=== PATIENT | female | born 1965 | race Caucasian/White ===

== ENCOUNTER 2022-03-03 13:31 | Outpatient (CLI) | payer BC, SELFPAY ==
--- NOTE | 2022-03-03 13:45 | MR_ITS ---
[address] [address] Phone:?[phone] Fax:?[phone] Referring Physician Information: Paras Sidhu PA-C [id number] [facility] [id number] Phone:?[phone] Fax:?[phone] Patient:Marlena Vasquez D.O.B:?1965 Sex:?Female Phone:?[phone] [facility] MRN:?[id number] Exam Date:?03/03/2022 ? EXAM: MRI of the LEFT HIP, without contrast CLINICAL HISTORY: Left hip pain. No history of previous surgery. COMPARISONS: CT scan 06/26/2016. TECHNICAL: MR sequences of the left hip: Axials: PD FS Axial oblique: PD Coronals: PD, T2 Coronal pelvis: T1 and STIR Sagittals: PD and T2 CONTRAST: None SEDATION: None FINDINGS: Pelvis osseous structures: Sacrum: No fracture or destructive osseous lesion is seen of the imaged portions of the sacrum. Sacroiliac joints: No convincing evidence of sacroiliitis of the imaged portions of the sacroiliac joints. Pubic rami: Unremarkable. Symphysis pubis: There is no evidence of acute osteitis pubis. Labrum: Fraying/ill-defined tearing of the anterosuperior and posterosuperior portions of the left hip labrum is suspected although it must be noted that evaluation is compromised by nonarthrogram technique, suboptimal [id number], and motion degradation. Hip joint: Physiologic amount of joint fluid. No chondral loss is seen although it must be noted that the cartilage is not optimally evaluated because of nonarthrogram technique, suboptimal [id number], and motion degradation. No subchondral bone marrow edema or subchondral cystic change is seen. Proximal femur: No fracture, osseous stress injury, avascular necrosis, or suspicious bone marrow signal abnormality is seen. The left femoral alpha angle measures approximately 95 degrees at the 1 o'clock position anterosuperiorly measured on coronal series 4 image 12. Acetabulum: No subchondral cysts, periacetabular ossicles or marrow edema. Coverage: Left lateral center edge (CE) angle measures approximately 35? (normal 25?-39?) correcting for coronal pelvic tilt, midline coronal series 4 image 10. Ligamentum teres: Unremarkable. Myotendinous structures: Gluteus abductors: There is ill-defined high-grade partial tear of the left gluteus minimus tendon insertion best seen on axial series 7 images 8 through 16 and coronal series 2 images 16 through 18. Rectus abdominis-adductor longus aponeurosis, adductors, and rectus abdominis: Unremarkable. Hamstrings: Unremarkable. Flexors: The iliopsoas and rectus femoris tendons are intact. Quadratus femoris muscle: Unremarkable. Gluteal aponeurotic fascia and IT band: Unremarkable. Pelvic soft tissues: There is an approximately 2.7 cm in craniocaudad dimension by 2.3 cm in transverse dimension right-sided ovarian lesion best seen on coronal series 3 images 13 through 16 that may represent a hemorrhagic cyst or ovarian dermoid. IMPRESSION: 1. Fraying/ill-defined tearing of the anterosuperior and posterosuperior portions of the left hip labrum is suspected although it must be noted that evaluation is compromised by nonarthrogram technique, suboptimal [id number], and motion degradation. No left hip chondral loss is identified although it must be noted that evaluation is compromised by nonarthrogram technique, suboptimal [id number]-[id number], and motion degradation. No degenerative subdural cystic change/degenerative subchondral bone marrow edema. 2. Left femoral cam morphology with a femoral alpha angle of approximately 95 degrees at the 1 o'clock position anterosuperiorly. 3. Ill-defined high-grade partial tear of the left gluteus minimus tendon insertion. 4. Approximately 2.7 x 2.3 cm right-sided right ovarian lesion may represent a hemorrhagic ovarian cyst or ovarian dermoid. Dedicated pelvic ultrasound is recommended for further evaluation. 5. No fracture or osseous stress injury of the left hip. RCB Electronically signed on 03/06/2022 7:39:00 AM by Alcides Walters M.D.
== END 2022-03-03 13:32 | disposition home or self-care (01) ==
LOC: MRI 13:32
PROVIDERS: PCP Physician Assistant Medical; Visit Provider Physician Assistant Medical
DX: M25.552 Pain in left hip (principal); S73.192A Other sprain of left hip, initial encounter; S46.912A Strain of unspecified muscle, fascia and tendon at shoulder and upper arm level, left arm, initial encounter; N83.201 Unspecified ovarian cyst, right side
CPT/HCPCS: 73721

== ENCOUNTER 2022-03-09 08:52 | Outpatient (CLI) | payer BC, SELFPAY ==
[2022-03-09 13:56] LABS: Alanine Aminotransferase* 42 U/L (4-35); Aspartate Amino Transferase* 47 U/L (12-35); Cholesterol* 190 mg/dL (90-199); HDL Cholesterol* 38 mg/dL (>=50); LDL Cholesterol Calculated 114 mg/dL (<100); Triglycerides* 191 mg/dL (40-149)
== END 2022-03-09 08:53 | disposition home or self-care (01) ==
PROVIDERS: PCP Physician Assistant Medical; Visit Provider Physician Assistant Medical
DX: E78.5 Hyperlipidemia, unspecified (principal); E66.01 Morbid (severe) obesity due to excess calories; M25.552 Pain in left hip
CPT/HCPCS: 80061; 84450; 84460

== ENCOUNTER 2022-03-22 14:16 | Outpatient (RCR) | payer BC, SELFPAY | END 2022-05-31 11:16 | disposition home or self-care (01) | PROVIDERS: PCP Physician Assistant Medical; Visit Provider Family Medicine | DX: M25.552 Pain in left hip (principal); M25.562 Pain in left knee; Z51.89 Encounter for other specified aftercare | CPT/HCPCS: 97035; 97110; 97140 ==

== ENCOUNTER 2022-06-13 15:15 | Outpatient (CLI) | payer BC, SELFPAY ==
[2022-06-13 21:35] LABS: Chloride* 105 mmol/L (96-114); Potassium* 4.6 mmol/L (3.6-5.1); Sodium* 138 mmol/L (135-149)
[2022-06-13 21:38] LABS: Carbon Dioxide* 26 mmol/L (20-32); Creatinine* 0.8 mg/dL (0.5-1.5); Estimated Glomerular Filt Rate 87 ml/min
[2022-06-13 21:39] LABS: Blood Urea Nitrogen* 17 mg/dL (7-30); Calcium* 9.1 mg/dL (8.4-10.6); Glucose* 140 mg/dL (60-115)
== END 2022-06-13 15:16 | disposition home or self-care (01) ==
LOC: FRMREF 15:16
PROVIDERS: PCP Physician Assistant Medical; Visit Provider Physician Assistant Medical
DX: Z01.818 Encounter for other preprocedural examination (principal)
CPT/HCPCS: 80048

== ENCOUNTER 2022-06-23 10:46 | Outpatient (CLI) | payer BC, SELFPAY | END 2022-06-23 10:47 | disposition home or self-care (01) | LOC: RAD 10:47 | PROVIDERS: PCP Physician Assistant Medical; Visit Provider Physician Assistant Medical | DX: Z01.810 Encounter for preprocedural cardiovascular examination (principal); I34.0 Nonrheumatic mitral (valve) insufficiency | CPT/HCPCS: 93306 ==

== ENCOUNTER 2023-03-09 07:42 | Outpatient (CLI) | payer BC, SELFPAY | END 2023-03-09 07:43 | disposition home or self-care (01) | LOC: NFLDREF 20:34 | PROVIDERS: PCP Physician Assistant Medical; Referring Provider Physician Assistant Medical; Visit Provider Physician Assistant Medical | DX: E78.5 Hyperlipidemia, unspecified (principal); I10 Essential (primary) hypertension | CPT/HCPCS: 80053; 80061; 84443 ==

== ENCOUNTER 2023-03-13 15:19 | Outpatient (CLI) | payer BC, SELFPAY | END 2023-03-13 15:20 | disposition home or self-care (01) | PROVIDERS: PCP Physician Assistant Medical; Visit Provider Physician Assistant Medical | DX: Z00.00 Encounter for general adult medical examination without abnormal findings (principal); R20.0 Anesthesia of skin; R25.2 Cramp and spasm; E66.01 Morbid (severe) obesity due to excess calories; I10 Essential (primary) hypertension; Z13.21 Encounter for screening for nutritional disorder; E78.2 Mixed hyperlipidemia; D50.0 Iron deficiency anemia secondary to blood loss (chronic); G43.109 Migraine with aura, not intractable, without status migrainosus; D68.51 Activated protein C resistance | CPT/HCPCS: 82306; 82607 ==

== ENCOUNTER 2023-06-14 08:33 | Outpatient (CLI) | payer BC, SELFPAY | END 2023-06-14 08:34 | disposition home or self-care (01) | LOC: NFLDREF 06-16 20:18 | PROVIDERS: PCP Physician Assistant Medical; Referring Provider Physician Assistant Medical; Visit Provider Physician Assistant Medical | DX: R79.0 Abnormal level of blood mineral (principal); D50.0 Iron deficiency anemia secondary to blood loss (chronic); E55.9 Vitamin D deficiency, unspecified | CPT/HCPCS: 82306; 82728 ==

== ENCOUNTER 2023-09-28 08:52 | Outpatient (CLI) | payer BC, SELFPAY ==
--- NOTE | 2023-09-28 10:53 | W.ANESCHARGE ---
Anesthesia Charges Start Date/Time Anesthesia Start Date: 09/28/23 Anesthesia Start Time: 10:26 Stop Date/Time Anesthesia Stop Date: 09/28/23 Anesthesia Stop Time: 10:48
== END 2023-09-28 08:53 | disposition home or self-care (01) ==
LOC: OP CLINIC 08:53
PROVIDERS: PCP Physician Assistant Medical; Visit Provider Internal Medicine
DX: Z12.11 Encounter for screening for malignant neoplasm of colon (principal); Z86.010 Personal history of colon polyps; Z80.0 Family history of malignant neoplasm of digestive organs
CPT/HCPCS: 00812; 45378; J2704

== ENCOUNTER 2023-12-25 13:08 | Outpatient (CLI) | payer BC, SELFPAY | END 2023-12-25 13:09 | disposition home or self-care (01) | PROVIDERS: PCP Physician Assistant Medical; Visit Provider Physician Assistant Medical | DX: I10 Essential (primary) hypertension (principal); R79.0 Abnormal level of blood mineral; M25.59 Pain in other specified joint; Z13.29 Encounter for screening for other suspected endocrine disorder | CPT/HCPCS: 80053; 82306; 82728; 84443; 86200; 86431 ==

== ENCOUNTER 2024-05-12 10:45 | Outpatient (CLI) | payer BC, SELFPAY | END 2024-05-12 10:46 | disposition home or self-care (01) | LOC: NFLDREF 05-15 07:13 | PROVIDERS: PCP Physician Assistant Medical; Referring Provider Physician Assistant Medical; Visit Provider Physician Assistant Medical | DX: D50.0 Iron deficiency anemia secondary to blood loss (chronic) (principal); E55.9 Vitamin D deficiency, unspecified; G43.909 Migraine, unspecified, not intractable, without status migrainosus; R79.0 Abnormal level of blood mineral; I10 Essential (primary) hypertension; E78.2 Mixed hyperlipidemia; M05.741 Rheumatoid arthritis with rheumatoid factor of right hand without organ or systems involvement; M05.742 Rheumatoid arthritis with rheumatoid factor of left hand without organ or systems involvement; G43.109 Migraine with aura, not intractable, without status migrainosus; E66.01 Morbid (severe) obesity due to excess calories; B00.1 Herpesviral vesicular dermatitis; D68.51 Activated protein C resistance | CPT/HCPCS: 80061; 82306; 82728; 84450; 84460 ==

== ENCOUNTER 2024-05-29 07:05 | Outpatient (CLI) | payer BC, SELFPAY ==
--- NOTE | 2024-05-29 07:15 | CRLHL7_ITS ---
For Patients: As a result of the Century Cures Act, medical imaging exams and procedure reports are released immediately into your electronic medical record. You may view this report before your referring provider. If you have questions, please contact your health care provider. Indication: Elevated LFTs Technique: Multiple transverse and longitudinal sonographic grayscale images of the right upper quadrant of the abdomen were obtained, supplemented with color, power, and spectral Doppler imaging. Comparison: 12/27/2018. Findings: Pancreas: Visualized portions normal. Liver length: 15.7 cm. Liver appearance: Moderate hepatic steatosis. No biliary ductal dilation. Portal vein: Patent, hepatopetal flow. CBD: 0.6 cm. Gallbladder: Status post cholecystectomy. Right kidney length: 11.7 cm. Right kidney appearance: Normal. Impression: 1. Moderate hepatic steatosis. 2. Postsurgical changes from cholecystectomy. Dictated by Grabiel Ghotra MD @ 05/31/2024 10:35:15 AM (Electronically Signed)
== END 2024-05-29 07:06 | disposition home or self-care (01) ==
LOC: US 07:06
PROVIDERS: PCP Physician Assistant Medical; Visit Provider Physician Assistant Medical
DX: R79.89 Other specified abnormal findings of blood chemistry (principal); K76.0 Fatty (change of) liver, not elsewhere classified
CPT/HCPCS: 76705

== ENCOUNTER 2024-07-07 13:49 | Outpatient (CLI) | payer BC, SELFPAY | END 2024-07-07 13:50 | disposition home or self-care (01) | LOC: FRMREF 13:50 | PROVIDERS: PCP Physician Assistant Medical; Visit Provider Physician Assistant Medical | DX: R19.7 Diarrhea, unspecified (principal) | CPT/HCPCS: 84450; 84460 ==

== ENCOUNTER 2025-05-11 07:32 | Outpatient (CLI) | payer BC, SELFPAY | END 2025-05-11 07:33 | disposition home or self-care (01) | LOC: NFLDREF 05-15 02:18 | PROVIDERS: PCP Physician Assistant Medical; Referring Provider Physician Assistant Medical; Visit Provider Physician Assistant Medical | DX: Z00.00 Encounter for general adult medical examination without abnormal findings (principal); E55.9 Vitamin D deficiency, unspecified | CPT/HCPCS: 80053; 80061; 82306; 84443 ==

== ENCOUNTER 2025-06-30 16:27 | Outpatient (CLI) | payer BC, SELFPAY ==
--- NOTE | 2025-06-30 16:45 | CRLHL7_ITS ---
For Patients: As a result of the Century Cures Act, medical imaging exams and procedure reports are released immediately into your electronic medical record. You may view this report before your referring provider. If you have questions, please contact your health care provider. INDICATION: Pain and swelling TECHNIQUE: Ultrasound venous duplex lower right extremity. Compression venous exam was performed using krause-scale, color Doppler, and spectral Doppler imaging. COMPARISON: None FINDINGS: Sonographic imaging demonstrates the right common femoral, deep femoral, superficial femoral, popliteal, posterior tibial and greater saphenous and the contralateral left common femoral veins to be fully compressible with normal color Doppler blood flow. IMPRESSION: No convincing radiographic evidence of deep vein thrombosis within the visualized right lower extremity. Dictated by Elliott Adam MD @ 06/30/2025 5:53:44 PM (Electronically Signed)
== END 2025-06-30 16:28 | disposition home or self-care (01) ==
LOC: US 16:27
PROVIDERS: PCP Physician Assistant Medical; Visit Provider Physician Assistant Medical
DX: M79.604 Pain in right leg (principal); R22.41 Localized swelling, mass and lump, right lower limb
CPT/HCPCS: 93971